=== PATIENT | male | born 1970 | race Caucasian/White ===

== ENCOUNTER 2019-08-02 10:13 | Inpatient (IN) ==
[2019-08-02] MEDS ORDERED: NS 1,000 ML IV ONE ×3 (10:33→11:49)
[2019-08-02] MEDS ORDERED: HUMULIN R IV ONE (10:38)
[2019-08-02] MEDS ORDERED: ZOFRAN IV ONE (10:53)
[2019-08-02 11:04] LABS: ALLEN TEST YES; BE -25.7 mmoll (-3.0-3.0); BLOOD TYPE ARTERIAL; HCO3-(ACT) 4.9 mmoll (20.0-26.0); O2(CT) 23.1 mL/dL (15.0-23.0); O2HB 97.3 % (95.0-99.0); PO2(98.6) 121 mmHg (60-100); SAMPLE BLOOD; SAO2 99.6 % (95.0-100.0); THB 16.8 g/dL (11.5-17.4)
[2019-08-02 11:07] LABS: BASO# 0.08 X1000 (0.0-0.2); BASO% 0.6 % (0.0-0.8); EOS# 0.05 X1000 (0.0-0.7); EOS% 0.3 % (0.0-10.0); HEMATOCRIT 50.1 % (42.0-52.0); HEMOGLOBIN 16.4 g/dL (14.0-18.0); IMM GRAN# 0.07 X1000 (0.0-0.04); IMM GRAN% 0.5 % (0.0-0.5); LYMPH# 1.32 X1000 (1.2-3.4); LYMPH% 9.1 % (20.5-51.1); MCH 28.8 PG (27-31); MCHC 32.7 g/dL (33-37); MONO# 1.04 X1000 (0.11-0.59); MONO% 7.2 % (1.7-9.3); MPV 10.6 FL (7.4-10.4); NEUT# 11.88 X1000 (1.4-6.5); NEUT% 82.3 % (42.2-75.2); PLT 362 X1000 (130-400); RBC 5.69 XMIL (4.7-6.1); RDW 12.2 % (11.5-14.5); WBC 14.44 X1000 (4.8-10.8)
[2019-08-02 11:08] LABS: MODALITY ROOM AIR; PCO2(98.6) 16 mmHg (35-45)
[2019-08-02] MEDS ORDERED: POTASSIUM CHLORIDE 20% LIQUID PO PRN ×2 (11:31→14:29)
[2019-08-02] MEDS ORDERED: MAGNESIUM SULFATE 2 GM/S.W.I. 2 GM/50 ML IVPB IV PRN ×2 (11:31→14:29)
[2019-08-02] MEDS ORDERED: SODIUM PHOSPHATE 30 MMOL in D5W 250 ML IV PRN ×2 (11:31→14:29)
[2019-08-02] MEDS ORDERED: D50W SYRINGE IV PRN ×3 (11:31→14:29)
[2019-08-02] MEDS ORDERED: POTASSIUM CHLORIDE 10% LIQUID PO PRN ×2 (11:31→14:29)
[2019-08-02] MEDS ORDERED: SODIUM BICARBONATE 8.4% 100 MEQ in STERILE WATER INJ. 500 ML IV PRN ×2 (11:31→14:29)
[2019-08-02] MEDS ORDERED: POTASSIUM CHLORIDE 20 MEQ/SWI 20 MEQ/100 ML IVPB IV PRN ×3 (11:31→14:29)
[2019-08-02 11:32] LABS: MAGNESIUM 2.9 mg/dL (1.5-2.7); PHOSPHORUS 8.7 mg/dL (2.7-4.5)
[2019-08-02 11:44] LABS: ALB/GLOB RATIO 1.4; ALBUMIN 4.9 g/dL (3.5-5.0); CALCIUM 9.9 mg/dL (8.8-10.2); CREATININE 2.2 mg/dL (0.7-1.2); POTASSIUM 5.8 mmol/L (3.5-5.1); TOTAL BILIRUBIN 0.36 mg/dL (0.20-1.00); TOTAL PROTEIN 8.3 g/dL (6.3-8.3)
[2019-08-02] MEDS ORDERED: ROCEPHIN 1 GM in NS 50 ML IV ONE (11:50)
--- NOTE | 2019-08-02 12:15 | Diag Imaging Result Doc PS360 ---
EXAM: CHEST-PORTABLE INDICATION: DKA TECHNIQUE: One view COMPARISON: 12/05/2013 FINDINGS: The lungs are grossly clear. There is no discrete pleural fluid collection or pneumothorax. The cardiomediastinal silhouette and central vasculature are grossly unremarkable. IMPRESSION: No evidence of acute pathology by plain radiograph. Electronically signed by Britton Torres 08/02/2019 12:13 PM
--- NOTE | 2019-08-02 12:37 | Diag Imaging Result Doc PS360 ---
EXAM: CT ABDOMEN/PELVIS W/O CONTRAST INDICATION: abd pain/DKA TECHNIQUE: This exam was performed using automated exposure control, adjustment of mA or kV according to patient size, and/or use of iterative reconstruction technique. COMPARISON: None. FINDINGS: There are a few tiny noncalcified nodules at the lung bases that are all 4 mm or less. They are nonspecific but statistically they likely represent noncalcified granulomata. There is mild diffuse hepatic steatosis. The gallbladder, spleen, pancreas, and adrenal glands are unremarkable. The kidneys are unremarkable. The urinary bladder is distended and is grossly unremarkable, otherwise. There is diffuse fatty infiltration of the colonic wall, which can be seen in patients with elevated BMI. There is no evidence of appendicitis. There is a small uncomplicated right side colonic diverticulum. There is no evidence of small bowel wall thickening. There is no evidence of bowel obstruction. The stomach is moderately distended with fluid. No focal inflammatory changes, free abdominal gas, or free fluid is appreciated. There is no evidence of acute osseous abnormality. IMPRESSION: Incidental/nonacute findings detailed above. No definite acute pathology by CT. Electronically signed by Britton Torres 08/02/2019 12:35 PM
[2019-08-02] MEDS: HUMULIN R 100 UNIT in NS 100 ML IV SCH (12:43)
[2019-08-02] MEDS ORDERED: TYLENOL PO PRN (12:49)
--- NOTE | 2019-08-02 12:57 | PROVIDER DOCUMENTATION ---
This chart was entered by [place] [employer] Scribe, acting as scribe for Osmel Turcios DO. HPI-General Adult - General Stated Complaint: SOB,DKA,COUGH Time Seen by Provider: 08/02/19 10:14 Source: patient Allergies/Adverse Reactions: Patient Allergies Allergy/AdvReac Type Severity Reaction Status Date / Time Penicillins Allergy Unknown Verified 08/02/19 11:13 Home Medications: Home Medication List Medication Instructions Recorded Confirmed Last Taken Type Subcutaneous Insulin Pump [Insulin 1 each MC DIRECTED 12/05/13 08/02/19 08/02/19 History Pump] FOSINOpril [Monopril] 40 mg PO QHS 08/02/19 08/02/19 Unknown History Fenofibric Acid (Choline) 135 mg PO QHS 08/02/19 08/02/19 1 Day Ago History [Fenofibric Acid] ~08/01/19 Fluoxetine [Prozac] 20 mg PO QHS 08/02/19 08/02/19 1 Day Ago History ~08/01/19 ROSUVAstatin [Crestor] 20 mg PO QHS 08/02/19 08/02/19 1 Day Ago History ~08/01/19 - History of Present Illness -Gen Adult Nature of Presenting Problems: jesika presents to the ed with multiple complaints all with acute onset yesterday. he reports he has had intermittent nausea, vomiting, diarrhea, cough, diffuse abdominal discomfort and has noted elevated BGL greater then 500. Location of Pain/Injury: reports: abdomen Pain Radiation: reports: no radiation Quality of Pain: reports: aching Severity: reports: mild Onset/Duration: reports: 24 hours ago Timing: reports: still present, intermittent Context/Activities at Onset: reports: light activity Modifying Factors: worse with: coughing Associated Symptoms: reports: cough, diarrhea, nausea, vomiting, other (elevated FSBG). denies: back/neck pain, chest pain, fever/chills, headaches, shortness of breath Similar Symptoms Previously?: Yes Recently seen or treated by another doctor?: No - Diabetes Related Context Context: reports: high blood sugar, prior DKA hospitalization Review of Systems - Adult - REVIEW OF SYSTEMS - ADULT Constitutional: denies: chills, fever Eyes: reports: no symptoms reported Ears, Nose, Mouth & Throat: reports: no symptoms reported Cardiovascular: denies: chest pain, palpitations Respiratory: reports: see HPI, cough. denies: shortness of breath, wheezing Gastrointestinal: reports: see HPI, abdominal pain, diarrhea, nausea, vomiting Genitourinary: reports: no symptoms reported Musculoskeletal: denies: back pain, neck pain Integumentary: reports: no symptoms reported Neurological: denies: dizziness/vertigo, headache/migraines Psychiatric: reports: no symptoms reported Endocrine: reports: no symptoms reported Hematologic/Lymphatic: reports: no symptoms reported Allergic/Immunologic: reports: no symptoms reported All Other Systems: Reviewed and Negative Past History - Adult - PAST MEDICAL HISTORY-ADULT Review of Records: reports: Old Records Reviewed, Nursing Assessment Review, Medications Reviewed, Social history reviewed & non-contributory. Major Childhood Illnesses: reports: denies history Cardiovascular: reports: other Respiratory: reports: denies history Gastrointestinal: reports: denies history Musculoskeletal: reports: denies history Neurological: reports: denies history Endocrine/Immune: reports: Diabetes Diabetes Type: Type 1 Other Conditions: reports: denies history - PRIOR SURGERIES/PROCEDURES Surgical/Procedure History: reports: hernia repair - PRIOR HOSPITALIZATIONS Prior Hospitalizations: reports: for similar symptoms - IMMUNIZATION STATUS Childhood Immunizations: See Nurse Assessment Flu Vaccine: See Nurse Assessment - FAMILY HISTORY Family History: reviewed, not pertinent - SOCIAL HISTORY Smoking: cigarettes, less than 1 pack/day Substance Use: alcohol Alcohol Use Frequency: 2-3 times a month Number of drinks per typical drinking period:: 2 drinks Living Situation: family Physical Exam-General - PHYSICAL EXAM-ADULT Initial Vital Signs Reviewed: Yes - CONSTITUTIONAL General Appearance: alert, no apparent distress (nontoxic in appearance) - EYES Eyes: PERRL/EOMI, pink conjunctivae - HEAD, EARS, NOSE, MOUTH & THROAT HENMT: negative: moist mucous membranes (dry oral) - NECK Neck: non-tender, full range of motion, supple, normal inspection - RESPIRATORY Respiratory: chest non-tender, lungs clear, normal breath sounds - CARDIOVASCULAR Cardiovascular: normal peripheral pulses, tachycardia (112) - CHEST (BREASTS) Chest/Breast: deferred - GASTROINTESTINAL (ABDOMEN) Abdominal Exam: normal bowel sounds, soft, distended (mild). negative: no organomegaly, no pulsatile mass, guarding, rigid, rebound, tenderness - LYMPHATIC Lymphatic: no adenopathy - MUSCULOSKELETAL Back Exam: no CVA tenderness, no vertebral tenderness Extremity: normal range of motion, non-tender, normal gait, normal inspection - SKIN Integumentary: normal color, normal turgor, warm/dry - NEUROLOGIC Neurologic: grossly normal - PSYCHIATRIC Psych/Mental Status: normal mood/affect, normal thought content, normal thought process, oriented x 3 Progress - PLAN OF CARE/RESULTS Progress/Plan/Lab Results: Laboratory Results - last 24 hr 08/02/19 10:25 POC Glucose 500 H D Orders Category Date Time Status Isolation [Isolation Precautions Setup] NOW Care 08/02/19 10:27 Active Result Diagrams: 08/02/19 10:20 08/02/19 10:20 - REASSESSMENT Reassessment #1 Time Reassessed: 12:40 Status: improving Reassessment Comment: pt is feeling better and dr turcios is at bedside - EKG 1 Time of EKG reading by physician:: 12:04 EKG Read and Signed by:: Osmel Turcios EKG Interpretation (*Must complete 3 of following elements*): Normal Rate: 107 Rhythm: sinus tachycardia [place]: normal QRS: normal [place] Interval: normal ST Wave: normal - XRAY 1 XRAY: Bilateral XRAY Study: Chest Impression: See EMR Report (IMPRESSION: No evidence of acute pathology by plain radiograph. Electronically signed by Britton Torres 08/02/2019 12:13 PM [id number]) - CT/MRI 1 CT Study: Abdomen, Pelvis Impression: See EMR Report (IMPRESSION: Incidental/nonacute findings detailed above. No definite acute pathology by CT. Electronically signed by Britton Torres 08/02/2019 12:35 PM) - CONSULTS/PCP/HOSPITALIST Notification #1 *Consult/PCP/Hospitalist*: dr car PMD Time Discussed: 12:47 Reason/Comments: phone conversation Consult Disposition: Admit Departure - Departure Date of Disposition Decision: 08/02/19 Time of Disposition Decision: 12:47 DIAGNOSIS: Tobacco use disorder DKA (diabetic ketoacidoses) Qualifiers: Diabetes mellitus type: type 1 Diabetes mellitus complication detail: without coma Qualified Code(s): E10.10 - Type 1 diabetes mellitus with ketoacidosis without coma Disposition: ADMITTED INPATIENT 09 Certified Medical Emergency: Emergent Condition: Serious Referrals and Follow-Ups: Chele Car Jr, MD [Primary Care Provider] - Discharge Education: Steps to Quit Smoking, [id number] - Critical Care Note This patient required my direct & personal management of CC.: Yes Total Time (mins): 36 Critical Care Statement: This patient required my direct personal management to treat or rule out processes, the absence of which, could potentiallly result in sudden, clinically significant life or limb threatening deterioration. Attestation - Physician/ MANISHA Attestation Patient care was provided by Advanced Practice Provider:: No The physician spent face to face time with patient:: Yes Advanced Practice Provider documentation review:: Supervising physician onsite and consulted in the evaluation and care of this patient. The physician did have a face to face encounter with the patient. This chart was documented by the indicated scribe, ([place] [employer] Scribe) and accurately reflects the services I performed and decisions made by me, Osmel Turcios DO, as attested by the provider's signature.
[2019-08-02] MEDS ORDERED: HUMULIN R 100 UNIT in NS 100 ML IV SCH (13:00)
[2019-08-02] MEDS ORDERED: POTASSIUM CHLORIDE 40 MEQ/SWI 40 MEQ/100 ML IVPB IV PRN (14:29)
[2019-08-02] MEDS: ZOFRAN IV PRN ×2 (14:37→19:51)
[2019-08-02 15:47] LABS: URINE SOURCE CLEAN CATCH
[2019-08-02 15:50] LABS: CALCIUM 8.9 mg/dL (8.8-10.2); CREATININE 1.8 mg/dL (0.7-1.2); MAGNESIUM 2.5 mg/dL (1.5-2.7); PHOSPHORUS 2.7 mg/dL (2.7-4.5)
[2019-08-02 15:56] LABS: BILIRUBIN URINE NEGATIVE (NEGATIVE); BLOOD URINE MODERATE (NEGATIVE); COLOR YELLOW; GLUCOSE URINE >1000 mg/dL (NEGATIVE); KETONE URINE 150 mg/dL (NEGATIVE); LEUKOCYTES URINE NEGATIVE (NEGATIVE); NITRITE URINE NEGATIVE (NEGATIVE); PH URINE 5.5; PROTEIN URINE 30 mg/dL (NEGATIVE); TURBIDITY URINE CLEAR (CLEAR); UROBILINOGEN URINE NORMAL (NORMAL)
[2019-08-02 15:57] LABS: UR EPITHELIAL CELLS <10 /HPF (<10); URINE BACTERIA NEGATIVE /HPF; URINE RBC <10 /HPF (<10); URINE WBC <10 /HPF (<10)
[2019-08-02 16:09] LABS: UR AMPHETAMINES QUAL NONE DETECTED (NONE DETECT); UR BARBITUATES QUAL NONE DETECTED (NONE DETECT); UR BENZODIAZEPIN QUAL NONE DETECTED (NONE DETECT); UR CANNABINOIDS QUAL NONE DETECTED (NONE DETECT); UR COCAINE QUAL NONE DETECTED (NONE DETECT); UR METHADONE QUAL NONE DETECTED (NONE DETECT); UR OPIATES QUAL NONE DETECTED (NONE DETECT); UR OXYCODONE QUAL NONE DETECTED (NONE DETECT); UR PCP QUAL NONE DETECTED (NONE DETECT)
[2019-08-02] MEDS: NS 1,000 ML IV SCH ×2 (16:12→21:31)
--- NOTE | 2019-08-02 17:02 | HISTORY AND PHYSICAL ---
CHIEF COMPLAINT: Throwing up and abdominal pain. PRESENT ILLNESS: Patient is a 49-year-old white male with insulin-dependent diabetes mellitus on insulin pump. We have been trying to get this regulated. His last hemoglobin A1c was 8.2, and that was just a few days ago. He has had DKA once before about 10 years ago and he had abdominal and GI symptoms with that at that time as well. He came into the emergency room with a blood sugar initially around 590. His blood gas showed a pH of 7.00, PO2 121, pCO2 16, potassium 5.0. Sodium 126, glucose by that time was 398. He does have 150 ketones in the urine. He has got sugar in the urine greater than 1000. His white count is 14,440. He does seem to be in. diabetic ketoacidosis. He has not really been sick with anything else. He has had no cough or chest pain. He has had no fever at home. CT scan of the abdomen did not show anything acute. PAST MEDICAL HISTORY: Diabetes mellitus, eventually leading toward IDDM. He has also had hypertension and hypercholesterolemia. ALLERGIES: Penicillin. SOCIAL HISTORY: he does smoke but less than a pack a day. on occasion uses alcohol. Correction on smoking he does smoke but less than a pack a day. REVIEW OF SYSTEMS: Neurological: He has had a headache with this. He said earlier today that his he had bright flash lights in his eyes. All this is started about and this is Sunday and got worse yesterday and even worse today. Denies seizures or hearing problems. Pulmonary: Pulmonary denies cough, wheezing, dyspnea. Cardiovascular: Denies chest pain, heart palpitations, PND, orthopnea. GI: He has had nausea and vomiting. Initially had a little bit of diarrhea but he says it was very little mostly nausea and vomiting. Endocrine: Does have diabetes. Musculoskeletal: Denies any joint problems or injuries. PHYSICAL EXAMINATION: VITAL SIGNS: Blood pressure 151/85, respirations 15 to 22, pulse 110, temperature 97.5 degrees Fahrenheit. HEENT: Normocephalic. Extraocular movements are intact. PERRLA. Throat clear. Fundi not seen well due to constriction of pupils. NECK: Supple without thyromegaly, lymphadenopathy, carotid bruits. LUNGS: Clear to auscultation and percussion without rhonchi, rales, or wheezes. HEART: Regular rate and rhythm to sinus tachycardia without murmurs, gallops, or friction rubs. ABDOMEN: Soft active bowel sounds. No organomegaly or tenderness at this time. He says he is feeling better since he has been on the insulin drip. We did stop his insulin pump. LYMPH NODES: Nonpalpable in the cervical supraclavicular areas. NEUROLOGICAL: Cranial nerves 2-12 intact grossly. Sensory motor intact reflexes 2+ all. RECTAL AND GENITALIA: Deferred. INTEGUMENT: Shows no lesions consistent with melanoma other skin cancers. ASSESSMENT: Diabetic ketoacidosis.Secondary Diagnoses: 1. Diabetes mellitus, insulin dependent type. 2. Hypertension. 3. Hyperlipidemia. 4. Depression treated with Prozac which seems to help considerably. PLAN: Continue to treat diabetic ketoacidosis with insulin drip. cc: Chele Car Jr, MD
--- NOTE | 2019-08-02 18:59 | EKG Report ---
Test Performed on : 08/02/2019 12:04:14 PM Test Reason : DKA Blood Pressure : / mmHG Vent. Rate : 107 BPM Atrial Rate : 107 BPM P-R Int : 130 ms QRS Dur : 090 ms QT Int : 354 ms P-R-T Axes : 055 051 046 degrees QTc Int : 472 ms Sinus tachycardia. Otherwise normal ECG No previous ECGs available Unconfirmed Result
[2019-08-02 21:33] LABS: AGAP 21; BUN 25 mg/dL (8-22); CALCIUM 8.7 mg/dL (8.8-10.2); CHLORIDE 98 mmol/L (98-107); COSMO 283; CREATININE 1.5 mg/dL (0.7-1.2); GLUCOSE 215 mg/dL (70-104); MAGNESIUM 2.1 mg/dL (1.5-2.7); PHOSPHORUS 1.2 mg/dL (2.7-4.5); POTASSIUM 4.6 mmol/L (3.5-5.1); SODIUM 136 mmol/L (136-145); TCO2 17 mmol/L (25-35)
[2019-08-02] MEDS ORDERED: KLOR-CON PO PRN (23:18)
[2019-08-02] MEDS: PROTONIX PO SCH (23:31)
[2019-08-02] MEDS: ROCEPHIN 1 GM in NS 50 ML IV SCH (23:32)
[2019-08-03 01:43] LABS: CREATININE 1.4 mg/dL (0.7-1.2); MAGNESIUM 2.2 mg/dL (1.5-2.7); PHOSPHORUS 1.3 mg/dL (2.7-4.5); POTASSIUM 5.2 mmol/L (3.5-5.1)
[2019-08-03] MEDS: HUMULIN R 100 UNIT in NS 100 ML IV SCH (06:22)
[2019-08-03 07:31] LABS: AGAP 17; BUN 17 mg/dL (8-22); CALCIUM 8.1 mg/dL (8.8-10.2); CHLORIDE 103 mmol/L (98-107); COSMO 280; CREATININE 1.2 mg/dL (0.7-1.2); ESTIMATED GFR > 60; GLUCOSE 149 mg/dL (70-104); PHOSPHORUS 1.6 mg/dL (2.7-4.5); POTASSIUM 4.1 mmol/L (3.5-5.1); SODIUM 138 mmol/L (136-145); TCO2 18 mmol/L (25-35)
[2019-08-03] MEDS: PROTONIX PO SCH ×2 (08:14→20:17)
[2019-08-03] MEDS: NS 1,000 ML IV SCH ×3 (08:19→21:47)
--- NOTE | 2019-08-03 10:36 | PROGRESS NOTE ---
DATE: 08/03/2019 SUBJECTIVE: The patient says he is feeling better. His heartburn is much better since starting Protonix. He is not nauseated now. His last blood sugar was 128. He came in, in DKA. OBJECTIVE: Blood pressure 121/58, respirations 18, pulse 89, temperature 97.8 degrees Fahrenheit. HEENT: Normocephalic. EOMs intact. PERRLA. Throat clear. Lungs: Clear to auscultation and percussion without rhonchi, rales, or wheezes. Chest x-ray is normal. Heart: Regular rate and rhythm without murmurs, gallops, or friction rubs. Abdomen: Soft. Active bowel sounds. No organomegaly or tenderness. Neurological Examination: Intact grossly. Sodium 138, potassium 4.1, BUN 17, creatinine down from 1.5 to 1.2, GFR up from 40 now at greater than 60, glucose was 127 and 128 and seems to be doing much better. Urine was normal initially except for ketones and sugar. ASSESSMENT AND PLAN: Diabetic ketoacidosis. The patient has been placed on isolation and he has been tested for Covid-19. The test is not back yet. He really does show symptoms of this but he came in sick and the emergency room physician ordered this. I do not see any signs of this at this time but I think we can move him to the floor and keep him on isolation, and watch for any other symptoms. We will use sliding scale. May restart his insulin pump soon and try to regulate his pump a little better while he is in the hospital. cc: Chele Car Jr, MD MTDIgor
[2019-08-03] MEDS ORDERED: PATIENT'S OWN MED INJ SCH (11:04)
[2019-08-03] MEDS: HUMULIN R SUBQ SCH ×3 (11:10→21:53)
[2019-08-03] MEDS: ROCEPHIN 1 GM in NS 50 ML IV SCH ×2 (11:11→21:47)
[2019-08-03] MEDS ORDERED: CRESTOR PO SCH (21:00)
[2019-08-03] MEDS ORDERED: MONOPRIL PO SCH (21:00)
[2019-08-03] MEDS ORDERED: TRILIPIX PO SCH (21:00)
[2019-08-03] MEDS ORDERED: PROZAC PO SCH (21:00)
[2019-08-04] MEDS: ROCEPHIN 1 GM in NS 50 ML IV SCH (02:25)
[2019-08-04] MEDS: NS 1,000 ML IV SCH (05:23)
[2019-08-04] MEDS: HUMULIN R SUBQ SCH (06:09)
[2019-08-04 06:35] LABS: AGAP 11; BUN 11 mg/dL (8-22); CALCIUM 8.1 mg/dL (8.8-10.2); CHLORIDE 101 mmol/L (98-107); COSMO 272; ESTIMATED GFR > 60; GLUCOSE 114 mg/dL (70-104); POTASSIUM 3.2 mmol/L (3.5-5.1); SODIUM 136 mmol/L (136-145); TCO2 24 mmol/L (25-35)
[2019-08-04] MEDS ORDERED: KLOR-CON PO ONE (07:35)
[2019-08-04 07:49] LABS: BASO# 0.04 X1000 (0.0-0.2); BASO% 0.6 % (0.0-0.8); EOS# 0.06 X1000 (0.0-0.7); EOS% 0.9 % (0.0-10.0); HEMOGLOBIN 13.1 g/dL (14.0-18.0); LYMPH# 1.81 X1000 (1.2-3.4); LYMPH% 27.3 % (20.5-51.1); MCHC 34.5 g/dL (33-37); MCV 84.3 FL (81-99); MONO# 0.54 X1000 (0.11-0.59); MONO% 8.2 % (1.7-9.3); NEUT# 4.17 X1000 (1.4-6.5); PLT 170 X1000 (130-400); RBC 4.51 XMIL (4.7-6.1); RDW 12.3 % (11.5-14.5); WBC 6.62 X1000 (4.8-10.8)
[2019-08-04 08:09] VITALS: BP 144/78
[2019-08-04] MEDS: PROTONIX PO SCH (08:44)
--- NOTE | 2019-08-04 09:30 | DISCHARGE SUMMARY ---
ADMISSION DATE: 08/02/2019 DISCHARGE DATE: 08/04/2019 FINAL DIAGNOSES: 1. Diabetic ketoacidosis. 2. Gastroesophageal reflux disease. 3. Nausea and vomiting, probably from the diabetic ketoacidosis. 4. Mild cough, which has resolved. 5. Hypokalemia. 6. Elevated plasma lactate of 4.2. 7. Depression, that is well-treated with Prozac. 8. Hyperlipidemia. 9. Hypertension. PRESENT ILLNESS AND HOSPITAL COURSE: The patient came in with throwing up and abdominal pain. He has complained of a little bit of a cough that I think was more from his reflux than anything else. Did have a blood sugar of 595. Had ketones in his urine. Was in DKA with a pH of 7.00, pCO2 of 16, PO2 of 121. Potassium 5, sodium 126. Was placed on an insulin drip after bolus. Was placed in the unit. He quickly improved. Blood sugar earlier today was only 97. After he went down to 200, his insulin drip was stopped and he was placed on sliding scale. Yesterday, I had moved him from the unit out to the floor, started his insulin pump back because of his IDDM. He has been running a little high at home even before the DKA. I am going to increase his basal rate during the day up to 3 units per hour. He is on 1 unit per hour from midnight to morning time. The patient has been tested for Covid-19. Results are not back yet. He is not showing any signs of this. Chest x-ray was clear. CT scan of the abdomen was essentially normal. His nausea and vomiting resolved after the DKA was taken care of. He has had some improvement with Protonix 40 mg twice daily and we will get him a prescription for that. PHYSICAL EXAMINATION: Blood pressure is 144/78, respirations 20, pulse 74, temperature 98.8 degrees Fahrenheit. HEENT: Normocephalic. EOMs intact. PERRLA. Throat clear. Lungs: Clear to auscultation and percussion without rhonchi, rales, or wheezes. Heart: Regular rate and rhythm without murmurs, gallops, or friction rubs. Abdomen: Soft. Active bowel sounds. No organomegaly or tenderness. Neurological: Examination intact grossly. DIAGNOSTIC DATA: Last hemoglobin A1c in the office just recently was 8.2%. PLAN: We will try to regulate his diabetes more. His potassium this morning was 3.2 so I gave him 40 mEq of KCl p.o. and he is starting to eat food now. I think this will resolve. We will discharge home on his regular home medications plus Protonix 40 mg p.o. b.i.d. Would like to see him back in the office within the next week, but we will talk with him before he comes in about his Covid-19 results. Hopefully, they will be back in the next 2 or 3 days. He should self isolate as if he did have Covid-19. That is what we would do anyway. He is aware that he will be around family members but he is to isolate the best he can. He is not to go to work until we get the results back. If they are negative, then he will do this same social distancing as recommended. Once we know his Covid-19 is negative, then I will have back to the office and we will do a chemistry profile 2 hours postprandial. cc: Chele Car Jr, MD
== END 2019-08-04 09:45 | disposition home or self-care (01) | DRG 639 ==
LOC: ED 10:13 → 4N 10:14 → ICU 13:27 → 4N 08-03 11:50
PROVIDERS: ADMIT Emergency Medicine; ATTEND Emergency Medicine